=== PATIENT | male | born 1985 | race Caucasian/White ===

== ENCOUNTER 2018-01-04 09:13 | Emergency (ER) | payer SELFPAY ==
[2018-01-04 09:35] VITALS: BP 126/84; PULSE 69; RESP 16; TEMP 98; O2SAT 98
--- NOTE | 2018-01-04 10:25 | RAD ---
PROCEDURE: Right Ankle Radiographs. HISTORY: r/o fx COMPARISON: None FINDINGS: BONES: No evidence of acute displaced fracture nor dislocation. Osseous structures including the talar dome intact. There is a tiny rounded corticated densities in the soft tissues subjacent to the inferior aspect of the lateral malleolus which may represent some old posttraumatic mineralization. JOINTS: Ankle mortise maintained. SOFT TISSUES: No there appears to be very minimal medial soft tissue OTHER FINDINGS: None. IMPRESSION: Swelling. No evidence acute displaced fracture nor dislocation. Probable old posttraumatic mineralization focus within the soft tissues subjacent to the inferior tip of the lateral malleolus.
--- NOTE | 2018-01-04 13:09 | C.PDOC ---
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 Patient reports of right sided head pain and right ankle pain. States he fell down few steps but was able to ambulate on scene. Denies LOC, vision changes, chest pain, SOB, nausea, vomiting, abdominal pain, neck pain, back pain, dizziness, weakness, numbness or headache. 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 Constitutional: Positive for: Other ((+) right sided head pain) Eyes: Negative for: Vision Change Cardiovascular: Negative for: Chest Pain Respiratory: Negative for: Shortness of Breath Gastrointestinal: Negative for: Nausea, Vomiting, Abdominal Pain Musculoskeletal: Positive for: Other ((+) right ankle pain). Negative for: Neck Pain, Back Pain Neurological: Negative for: Weakness, Numbness, Headache, Dizziness Physical Exam - Physical Exam Appears: Non-toxic, No Acute Distress Skin: Warm, Dry, No Rash Head: Atraumatic, Normacephalic, Tenderness (right temporal area), No Abrasion, No Laceration Eye(s): bilateral: Normal Inspection, PERRL, EOMI Oral Mucosa: Moist Neck: Normal, Normal ROM, Supple Cardiovascular: Rhythm Regular, No Murmur Respiratory: Normal Breath Sounds, No Rales, No Rhonchi, No Stridor, No Wheezing Gastrointestinal/Abdominal: Normal Exam, Soft, No Tenderness, No Guarding, No Rebound Extremity: Normal ROM (right ankle), Other (Right Ankle - Mild swelling and tenderness to the lateral malleolus) Neurological/Psych: Oriented x3, Normal Speech, Normal Motor, Normal Sensation, Normal Reflexes Gait: Steady ED Course And Treatment O2 Sat by Pulse Oximetry: 98 (RA) Pulse Ox Interpretation: Normal - Other Rad X-Ray - Right Ankle X-Ray: Viewed By Me, Read By Radiologist Interpretation: PROCEDURE: Right Ankle Radiographs. HISTORY: r/o fx. COMPARISON: None. FINDINGS: BONES: No evidence of acute displaced fracture nor dislocation. Osseous structures including the talar dome intact. There is a tiny rounded corticated densities in the soft tissues subjacent to the inferior aspect of the lateral malleolus which may represent some old posttraumatic mineralization. JOINTS: Ankle mortise maintained. SOFT TISSUES: No there appears to be very minimal medial soft tissue. OTHER FINDINGS: None. IMPRESSION: Swelling. No evidence acute displaced fracture nor dislocation. Probable old posttraumatic mineralization focus within the soft tissues subjacent to the inferior tip of the lateral malleolus. Medical Decision Making Medical Decision Making: PLAN: * CT - Head * X-Ray - Right Ankle NOTE: Patient left ER before CAT scan was done and did not return. While in ER, patient did not appeared to be in any distress. Ambulatory with steady gait. Disposition - Disposition Disposition: ELOPEMENT - ER ONLY Disposition Time: 12:00 Condition: UNKNOWN Forms: [employer] (Occitan) - Clinical Impression Clinical Impression: Ankle sprain - Scribe Statement The provider has reviewed the documentation as recorded by the Lorraineibe Sonja Du Provider Attestation: All medical record entries made by the Lorraineibmolina were at my direction and personally dictated by me. I have reviewed the chart and agree that the record accurately reflects my personal performance of the history, physical exam, medical decision making, and the department course for this patient. I have also personally directed, reviewed, and agree with the discharge instructions and disposition.
== END 2018-01-04 09:46 | disposition left against medical advice (07) ==
LOC: C.ER 09:13
DX: S93.401A Sprain of unspecified ligament of right ankle, initial encounter (principal); W01.0XXA Fall on same level from slipping, tripping and stumbling without subsequent striking against object, initial encounter

== ENCOUNTER 2018-01-05 08:40 | Emergency (ER) | payer SELFPAY ==
[2018-01-05 08:46] VITALS: TEMP 98.2
--- NOTE | 2018-01-05 09:41 | C.PDOC ---
History Of Present Illness PERSIST R HEAD PAIN S/P TRAUMA 01/04. PS STAIRS GAVE WAY, FELL ONTO R SIDE OF HEAD /BEHIND EAR. EVAL 01/04 FOR SAME S/P R ANKLE XRAY NEG BUT PS HAD TO LEAVE BEFORE COMPLETION OF EVAL DUE TO FAMILY OBLIGATION. PERSIST PAIN, SWELLING BEHIND R EAR. NO NV, LOC. ALSO CO "CHIPPED TEETH" 2 TOP FRONT TEETH. +MILD TOOTH PAIN BUT NO TEMP SENSITIVITY. DENIES TOOTH LOOSE. PERSIST PAIN R ANKLE BUT WT BEAR WO DIFF. DENIES OTHER ASSOC SX OR INJURY. S/P TYL 1000MG CARE TRANSITION COORDINATOR EXAM MILD DISCOMFORT NONTOXIC HEENT +SWELL R MASTOID AREA W MIN ERYTHEMA, GEN LOCAL TEND NO CREPITUS. B/L TEM CLEAR; B/L EYES WNL; +SMALL CHIPS UPPER FRONT TEETH NO SUBLUX. +DENTALGIA. AROM B/L TMJ WO DIFF. NECK NO CSPINE TEND SUPPLE NEURO INTACT NO FOCAL DEF SKIN INTACT EXT R ANKLE AROM WO DIFF. GAIT WT BEAR WO DIFF Time Seen by Provider: 01/05/18 09:21 Chief Complaint (Nursing): Lower Extremity Problem/Injury History Per: Patient History/Exam Limitations: no limitations Onset/Duration Of Symptoms: Days (1) Loss Of Consciousness: No Recent travel outside of the [place]: No Past Medical History Reviewed: Historical Data, Nursing Documentation, Vital Signs Vital Signs: Last Vital Signs Temp 98.2 F 01/05/18 08:43 Pulse 102 H 01/05/18 08:43 Resp 19 01/05/18 08:43 BP 110/76 01/05/18 08:43 Pulse Ox 98 01/05/18 11:03 Family History: States: No Known Family Hx - Social History Hx Alcohol Use: No Hx Substance Use: No Review Of Systems Except As Marked, All Systems Reviewed And Found Negative. Constitutional: Negative for: Fever Eyes: Negative for: Vision Change ENT: Positive for: Other ((+) persistent pain and swelling behind right ear. mild tooth pain) Cardiovascular: Negative for: Chest Pain Respiratory: Negative for: Shortness of Breath Gastrointestinal: Negative for: Nausea, Vomiting Musculoskeletal: Positive for: Other ((+) persistent right ankle pain) Neurological: Positive for: Other ((+) persistent right sided head pain). Negative for: Weakness, Numbness Physical Exam - Physical Exam Appears: Non-toxic, Other ((+) mild discomfort) Skin: Warm, Dry, No Rash Head: Atraumatic, Normacephalic, Other ((+) swelling to right mastoid area with minimal erythema, general local tenderness, no crepitus) Eye(s): bilateral: Normal Inspection, PERRL, EOMI Ear(s): Bilateral: Normal Nose: Normal Oral Mucosa: Moist Teeth: Other ((+) small chips upper front teeth, no sublux, +dentalgia. AROM bilateral TMJ w/o difficulty) Neck: Normal, Normal ROM, No Midline Cervical Tenderness, No Paracervical Tenderness, Supple Respiratory: Normal Breath Sounds Back: Normal Inspection Extremity: Normal ROM (right ankle), No Calf Tenderness, No Swelling Neurological/Psych: Oriented x3, Normal Speech, Normal Motor, Normal Sensation, Normal Reflexes Gait: Steady (w/ weight bearing) ED Course And Treatment O2 Sat by Pulse Oximetry: 98 (RA) Pulse Ox Interpretation: Normal - CT Scan/US CT - Head Other Rad Studies (CT/US): Read By Radiologist, Radiology Report Reviewed CT/US Interpretation: PROCEDURE: CT HEAD WITHOUT CONTRAST. HISTORY: TRAUMA. COMPARISON: None available. TECHNIQUE: Axial computed tomography images were obtained through the head/brain without intravenous contrast. Radiation dose: Total exam DLP = 859.86 mGy-cm. This CT exam was performed using one or more of the following dose reduction techniques: Automated exposure control, adjustment of the mA and/or kV according to patient size, and/or use of iterative reconstruction technique. FINDINGS: HEMORRHAGE: No intracranial hemorrhage. BRAIN: No mass effect or edema. No atrophy or chronic microvascular ischemic changes. VENTRICLES: No hydrocephalus. CALVARIUM: Unremarkable. PARANASAL SINUSES: Unremarkable as visualized. No significant inflammatory changes. MASTOID AIR CELLS: Unremarkable as visualized. No inflammatory changes. OTHER FINDINGS: None. IMPRESSION: No acute intracranial pathology identified. CT - Maxillofacial Other Rad Studies (CT/US): Read By Radiologist, Radiology Report Reviewed CT/US Interpretation: CT maxillofacial bones without IV contrast. Indication: Trauma, right mastoid area. Comparison: None available. Technique: Axial computed tomography images were obtained of the maxillofacial bones without the use of intravenous contrast. Coronal and sagittal reformatted images were generated and reviewed. This CT exam was performed using 1 or more of the following dose reduction techniques: Automated exposure control, adjustment of the MAA and/or kV according to patient size, and/or use of iterative reconstruction technique. Radiation dose: Total exam DLP = 933.94 mGy-cm. Findings: The facial bones appear intact without acute displaced fracture. The orbits appear unremarkable. The temporomandibular joints are located. The mastoid air cells appear clear. Small mucosal polyp/retention cyst within the left maxillary sinus. Paranasal sinuses appear otherwise clear. No air-fluid levels identified. Limited visualized brain appears unremarkable. Impression: No acute findings identified. See above. Progress - Re-Evaluation Re-evaluation Note: 01/05/18 11:15 NEURO INTACT [facility] FROM INITIAL. CT REPORTS REVIEWED. NO ACUTE FINDINGS - Data Reviewed Data Reviewed: Diagnostic imaging, Old records Medical Decision Making Medical Decision Making: PLAN: * CT - Head, Maxillofacial Disposition Counseled Patient/Family Regarding: Studies Performed, Diagnosis, Need For Followup, Rx Given - Disposition Referrals: YOUR,PMD [Other] Disposition: HOME/ ROUTINE Disposition Time: 11:17 Condition: GOOD Instructions: Head Injury (ED) Forms: [employer] (Montenegrin) - Clinical Impression Clinical Impression: Head contusion - Scribe Statement The provider has reviewed the documentation as recorded by the Lorraineibe Sonja Du Provider Attestation: All medical record entries made by the Lorraineibe were at my direction and personally dictated by me. I have reviewed the chart and agree that the record accurately reflects my personal performance of the history, physical exam, medical decision making, and the department course for this patient. I have also personally directed, reviewed, and agree with the discharge instructions and disposition.
--- NOTE | 2018-01-05 10:40 | CT ---
PROCEDURE: CT HEAD WITHOUT CONTRAST. HISTORY: TRAUMA COMPARISON: None available. TECHNIQUE: Axial computed tomography images were obtained through the head/brain without intravenous contrast. Radiation dose: Total exam DLP = 859.86 mGy-cm. This CT exam was performed using one or more of the following dose reduction techniques: Automated exposure control, adjustment of the mA and/or kV according to patient size, and/or use of iterative reconstruction technique. FINDINGS: HEMORRHAGE: No intracranial hemorrhage. BRAIN: No mass effect or edema. No atrophy or chronic microvascular ischemic changes. VENTRICLES: No hydrocephalus. CALVARIUM: Unremarkable. PARANASAL SINUSES: Unremarkable as visualized. No significant inflammatory changes. MASTOID AIR CELLS: Unremarkable as visualized. No inflammatory changes. OTHER FINDINGS: None. IMPRESSION: No acute intracranial pathology identified.
--- NOTE | 2018-01-05 10:55 | CT ---
CT maxillofacial bones without IV contrast Indication: Trauma, right mastoid area Comparison: None available Technique: Axial computed tomography images were obtained of the maxillofacial bones without the use of intravenous contrast. Coronal and sagittal reformatted images were generated and reviewed. This CT exam was performed using 1 or more of the following dose reduction techniques: Automated exposure control, adjustment of the MAA and/or kV according to patient size, and/or use of iterative reconstruction technique. Radiation dose: Total exam DLP = 933.94 mGy-cm. Findings: The facial bones appear intact without acute displaced fracture. The orbits appear unremarkable. The temporomandibular joints are located. The mastoid air cells appear clear. Small mucosal polyp/retention cyst within the left maxillary sinus. Paranasal sinuses appear otherwise clear. No air-fluid levels identified. Limited visualized brain appears unremarkable. Impression: No acute findings identified. See above.
[2018-01-05 11:39] VITALS: BP 108/69; PULSE 85; RESP 16; O2SAT 99
== END 2018-01-05 11:38 | disposition home or self-care (01) ==
LOC: C.ER 08:40
DX: S00.93XA Contusion of unspecified part of head, initial encounter (principal); W18.30XA Fall on same level, unspecified, initial encounter

== ENCOUNTER 2018-01-06 09:57 | Emergency (ER) | payer SELFPAY ==
[2018-01-06 10:14] VITALS: O2SAT 100
--- NOTE | 2018-01-06 11:04 | C.PDOC ---
History Of Present Illness Patient is a 32 year old male who presents complaining of intermittent right ear pain and decreased hearing s/p fall a few days ago. States he fell striking posterior head, behind the right ear. Seen here yesterday for same complaint and had a normal CT Head. Patient reports taking pain medication as instructed. Notes that his hearing worsened upon waking up this morning, so he returns for further evaluation. Patient has also been attempting to unclog the ear by swallowing with no relief. Otherwise no nausea, vomiting, fever, chills, or headache (besides pain at the site behind right ear). Time Seen by Provider: 01/06/18 10:18 Chief Complaint (Nursing): ENT Problem History Per: Patient History/Exam Limitations: no limitations Injury Occurred (Timing): Days Ago: (3) Patient States: Fell Striking Head Past Medical History Reviewed: Historical Data, Nursing Documentation, Vital Signs Vital Signs: Last Vital Signs Temp 98.7 F 01/06/18 11:12 Pulse 96 H 01/06/18 11:12 Resp 18 01/06/18 11:12 BP 121/83 01/06/18 11:12 Pulse Ox 100 01/06/18 12:06 - Medical History PMH: No Chronic Diseases Surgical History: No Surg Hx Family History: States: No Known Family Hx - Social History Hx Tobacco Use: Yes Hx Alcohol Use: No Hx Substance Use: No - Immunization History Hx Tetanus Toxoid Vaccination: Yes Hx Influenza Vaccination: Yes Hx Pneumococcal Vaccination: Yes Review Of Systems Except As Marked, All Systems Reviewed And Found Negative. Constitutional: Negative for: Fever, Chills ENT: Positive for: Ear Pain (Pain to right ear/posterior head), Other ( Decreased hearing) Gastrointestinal: Negative for: Nausea, Vomiting Neurological: Negative for: Headache Physical Exam - Physical Exam Appears: Non-toxic, No Acute Distress Skin: Normal Color, Warm, Dry Head: Normacephalic, Other (Post-auricular hematoma to right ear) Eye(s): bilateral: Normal Inspection, PERRL, EOMI Ear(s): Left: Normal, Right: TM Erythema (slight erythema, slight bulging) Nose: Normal Oral Mucosa: Moist Chest: Symmetrical Cardiovascular: Rhythm Regular, No Murmur Respiratory: Normal Breath Sounds, No Accessory Muscle Use Extremity: Other (Wearing splint) Extremity: Bilateral: Normal Color And Temperature, Normal ROM Neurological/Psych: Oriented x3, Normal Speech Gait: Steady ED Course And Treatment O2 Sat by Pulse Oximetry: 100 (RA) Pulse Ox Interpretation: Normal Medical Decision Making Medical Decision Making: Discussed Head CT taken on 01/05/18 with radiology, will order repeat CT 11:[address]: FINDINGS: HEMORRHAGE: No intracranial hemorrhage. BRAIN: No mass effect or edema. No atrophy or chronic microvascular ischemic changes. VENTRICLES: No hydrocephalus. CALVARIUM: Unremarkable. PARANASAL SINUSES: Unremarkable as visualized. No significant inflammatory changes. MASTOID AIR CELLS: Unremarkable as visualized. No inflammatory changes. OTHER FINDINGS: None. IMPRESSION: No acute intracranial pathology identified. Repeat head CT normal. Will d/c with ENT follow up. Disposition Counseled Patient/Family Regarding: Studies Performed, Diagnosis, Need For Followup - Disposition Referrals: [facility] [Outside] Brijesh Reyes MD [Staff Provider] - Disposition: HOME/ ROUTINE Disposition Time: 12:04 Additional Instructions: Follow up with ENT Instructions: Hearing Loss (DC) Forms: [employer] (Fijian) - POA Present On Arrival: None - Clinical Impression Clinical Impression: Head contusion, Hearing loss - Scribe Statement The provider has reviewed the documentation as recorded by the Lorraineibmolina Manning Provider Attestation: All medical record entries made by the Lorraineibe were at my direction and personally dictated by me. I have reviewed the chart and agree that the record accurately reflects my personal performance of the history, physical exam, medical decision making, and the department course for this patient. I have also personally directed, reviewed, and agree with the discharge instructions and disposition.
[2018-01-06 11:13] VITALS: BP 121/83
[2018-01-06 11:15] VITALS: PULSE 96; RESP 18
--- NOTE | 2018-01-06 11:53 | CT ---
PROCEDURE: CT HEAD WITHOUT CONTRAST. HISTORY: R/O Bleed COMPARISON: Noncontrast head CT performed 01/05/18 TECHNIQUE: Axial computed tomography images were obtained through the head/brain without intravenous contrast. Radiation dose: Total exam DLP = 856.79 mGy-cm. This CT exam was performed using one or more of the following dose reduction techniques: Automated exposure control, adjustment of the mA and/or kV according to patient size, and/or use of iterative reconstruction technique. FINDINGS: HEMORRHAGE: No intracranial hemorrhage. BRAIN: No mass effect or edema. No atrophy or chronic microvascular ischemic changes. VENTRICLES: No hydrocephalus. CALVARIUM: Unremarkable. PARANASAL SINUSES: Unremarkable as visualized. No significant inflammatory changes. MASTOID AIR CELLS: Unremarkable as visualized. No inflammatory changes. OTHER FINDINGS: None. IMPRESSION: No acute intracranial pathology identified.
[2018-01-06 12:16] VITALS: TEMP 97.8
== END 2018-01-06 12:19 | disposition home or self-care (01) ==
LOC: C.ER 09:57
DX: H91.90 Unspecified hearing loss, unspecified ear (principal); S00.93XA Contusion of unspecified part of head, initial encounter; W18.30XA Fall on same level, unspecified, initial encounter